=== PATIENT | male | born 1965 | race Hispanic/Latino ===

== ENCOUNTER 2019-02-02 01:45 | Emergency (ER) | payer MEDICARE ==
[2019-02-02] MEDS ORDERED: TYLENOL ONE (03:09)
[2019-02-02] MEDS ORDERED: TYLENOL PO ONE (03:09)
[2019-02-02 04:07] LABS: Amorphous Crystals,Urine 1+; Bilirubin,Urine NEG (Negative); Blood,Urine NEG (Negative); Color,Urine Yellow (Yellow); Hyaline Casts,Urine 7 /LPF; Mucus,Urine 1+ /HPF; Protein,Urine <15 mg/dL mg/dL (Negative); Urobilinogen,Urine < 2.0 mg/dL (<2.0)
--- NOTE | 2019-02-02 07:37 | Emergency Department Report ---
ED Back Pain/Injury HPI - General Chief Complaint: Back Pain/Injury Stated Complaint: BACK PAIN Source: patient Limitations: No Limitations - History of Present Illness Initial Comments: This is a 53-year-old male that presents with acute on chronic low back pain that started 1 hour prior to arrival. Past medical history of hypertension, depression, chronic back pain, Parkinson's, and [place]'s. Patient reports pain is the lower back radiating down bilateral lower extremity. He reports pain 10 out of 10 on pain scale and worse with movement, burning sensation, and intermittent. He denies numbness or tingling, paresthesias, erythema, swelling, nausea or vomiting, weaknesses, urinary frequency, urgency, and dysuria. MD Complaint: back pain Onset/Timin -: days(s) Similar Symptoms Previously: Yes Place: home Radiation: left leg, right leg Severity: severe Severity scale (0 -10): 10 Quality: burning, aching Consistency: intermittent Improves With: none Worsens With: movement, supine, walking Context: unknown Associated Symptoms: denies: numbness, difficulty urinating, incontinence, fever/chills - Related Data Previous Rx's Medication Instructions Recorded Last Taken Type Ibuprofen [Motrin 600 MG tab] 600 mg PO Q8H PRN #15 tablet 02/02/19 Unknown Rx Lisinopril [Prinivil] 10 mg PO DAILY #30 tablet 02/02/19 Unknown Rx traMADol [Ultram 50 MG tab] 50 mg PO Q6HR PRN #12 tablet 02/02/19 Unknown Rx Allergies Allergy/AdvReac Type Severity Reaction Status Date / Time venlafaxine [From Effexor] Allergy Swelling Verified 11/01/18 09:13 ED Review of Systems ROS: Stated complaint: BACK PAIN Other details as noted in HPI Constitutional: denies: chills, fever Respiratory: denies: cough, shortness of breath, wheezing Cardiovascular: denies: chest pain, palpitations Gastrointestinal: denies: abdominal pain, nausea, diarrhea Musculoskeletal: back pain. denies: joint swelling, arthralgia Skin: denies: rash, lesions Neurological: denies: headache, weakness, paresthesias Psychiatric: denies: anxiety, depression ED Past Medical Hx - Past Medical History CHRONIC BACK PAIN, PARKINSONS, ADDISONS ED Back Pain Physical Exam - Exam General: Vital signs noted. No distress. Alert and acting appropriately. Back/Abdomen: Yes Sacroiliac Tenderness (tenderness above the iliac crest bilaterally, no erythema or swelling), Yes Straight Leg Raise Pain (right lower extremity), No Abdominal Tenderness, No Perithoracic Tenderness, No Perilumbar Tenderness, No Flank Tenderness Neuro: Yes Normal Sensation, Yes Normal DTR's, Yes Normal Gait, No Motor Weakness ED Course Vital Signs 02/02/19 02/02/19 03:03 07:23 Temperature 98 F Pulse Rate 82 Respiratory 20 18 Rate Blood Pressure 164/110 O2 Sat by Pulse 98 Oximetry Vital Signs 02/02/19 02/02/19 02/02/19 03:03 07:23 08:45 Temperature 98 F Pulse Rate 82 Respiratory 20 18 Rate Blood Pressure 164/110 163/105 O2 Sat by Pulse 98 Oximetry Ed Back Pain Tests - Tests Tests: Normal UA ED Medical Decision Making - Lab Data Lab Results 02/02/19 Range/Units 03:19 Urine Color Yellow (Yellow) Urine Turbidity Slightly-cloudy (Clear) Urine pH 7.0 (5.0-7.0) Ur Specific [place] 1.017 (1.003-1.030) Urine Protein <15 mg/dl (Negative) mg/dL Urine Glucose (UA) Neg (Negative) mg/dL Urine Ketones Neg (Negative) mg/dL Urine Blood Neg (Negative) Urine Nitrite Neg (Negative) Urine Bilirubin Neg (Negative) Urine Urobilinogen < 2.0 (<2.0) mg/dL Ur Leukocyte Esterase Neg (Negative) Urine WBC (Auto) 2.0 (0.0-6.0) /HPF Urine RBC (Auto) 2.0 (0.0-6.0) /HPF Amorphous Crystals 1+ Hyaline Casts 7 /LPF Urine Mucus 1+ /HPF - Medical Decision Making Patient was examined by me. Patient is in no acute distress. Blood pressure elevated on arrival. Past medical history of [place]'s, hypertension, running low back pain, and depression. Given Motrin , lisinopril, and tramadol while in ER. Obtained a urinalysis, are unremarkable. This is acute on chronic low back pain with sciatica. Patient informed of results. Start ibuprofen and tramadol for pain. We feel lisinopril 10 mg by mouth daily. Blood pressures trended down prior to discharge. Plan discussed with patient to discharge home and treat outpatient. Referral to pain management. He agrees with ER plan. Patient discharged home in stable condition. Follow up with PCP in 2-3 days. Critical care attestation.: If time is entered above; I have spent that time in minutes in the direct care of this critically ill patient, excluding procedure time. ED Disposition Clinical Impression: Low back pain due to bilateral sciatica, Asymptomatic hypertension Chronic bilateral back pain Qualifiers: Back pain location: low back pain Sciatica presence: with sciatica Sciatica laterality: bilateral sciatica Qualified Code(s): M54.42 - Lumbago with sciatica, left side Disposition: TO HOME OR SELFCARE Is pt being admited?: No Does the pt Need Aspirin: No Condition: Stable Instructions: Chronic Pain (ED), Lumbar Radiculopathy (ED), Hypertension (ED), Arthralgia (ED) Additional Instructions: Rest Use ice or heat on affected area for 20 minutes and off for 2 hours. Take pain medication every 6 hours as needed for pain. Follow up with Primary Care Provider in 2-3 days. Prescriptions: Ibuprofen [Motrin 600 MG tab] 600 mg PO Q8H PRN #15 tablet PRN Reason: Pain Lisinopril [Prinivil] 10 mg PO DAILY #30 tablet traMADol [Ultram 50 MG tab] 50 mg PO Q6HR PRN #12 tablet PRN Reason: Pain Referrals: MILE LANGLEY MD [Primary Care Provider] - 3-5 Days [facility] [Provider Group] - 3-5 Days [facility] [Provider Group] - 3-5 Days [facility] [Provider Group] - 3-5 Days [facility] [Provider Group] - 3-5 Days Time of Disposition: 08:06
[2019-02-02] MEDS ORDERED: ULTRAM PO ONE (07:56)
[2019-02-02] MEDS ORDERED: ZESTRIL PO ONE (08:35)
[2019-02-02 09:15] VITALS: BP 157/97
== END 2019-02-02 09:16 | disposition home or self-care (01) ==
LOC: ED 01:45
DX: M54.42 Lumbago with sciatica, left side (principal); I10 Essential (primary) hypertension; G20 Parkinson's disease; G89.29 Other chronic pain; E27.1 Primary adrenocortical insufficiency; Z88.8 Allergy status to other drugs, medicaments and biological substances
CPT/HCPCS: 81001; 99283

== ENCOUNTER 2019-03-27 13:28 | Emergency (ER) | payer MEDICARE ==
--- NOTE | 2019-03-27 13:46 | Emergency Department Report ---
Blank Doc - Documentation Documentation: 53 y o male presents to ED stating he cant pee" stated tried to pee this am and got some blood pelvic pain 8/10 intensity PMH:[email or web address] labs ordered Main ed
[2019-03-27] MEDS ORDERED: NACL 0.9% 500 ML 500 ML IV ONE (16:14)
[2019-03-27] MEDS ORDERED: SUBLIMAZE IV ONE (16:14)
--- NOTE | 2019-03-27 16:15 | Emergency Department Report ---
ED General Adult HPI - General Chief complaint: Urogenital-Male Stated complaint: CANT URINATE/BLOOD IN URINE/VOMITTING Time Seen by Provider: 03/27/19 13:42 Source: patient, RN notes reviewed Mode of arrival: Ambulatory Limitations: Physical Limitation - History of Present Illness Initial comments: Primary care DrBoy: [facility] Past medical history: Hypertension, parkinsonism, [place]'s disease This is a 53-year-old gentleman. The patient is not known to this provider previously. The patient presents to the emergency room today with complaint of nontraumatic left sided left lower quadrant pain, and an inability to urinate. Patient reports difficulty with urination in the past, and reports urinary retention a few months ago. He reports compliance with most of his medications, and indicates his medications have not been recently changed. He had a Danielle catheter placed, which drained approximately 100 mL of clear yellow urine. He denies testicular pain. He still has persistent left lower quadrant pain which is sharp, increases with palpation, decreases with rest and doesn't radiate anywhere. He had nausea, but is now resolved. He makes no complaint of headache, neck pain, sore throat, chest pain, new or different shor tness of breath, or new or different extremity pain. He has chronic tremor secondary to his parkinsonism. -: Sudden Location: abdomen Radiation: non-radiation Severity scale (0 -10): 8 Quality: aching Consistency: constant Improves with: rest - Related Data Home Medications Medication Instructions Recorded Confirmed Last Taken Amantadine [Symmetrel] 100 mg PO DAILY 03/27/19 03/27/19 03/27/19 AtorvaSTATin [Lipitor] 10 mg PO QHS 03/27/19 03/27/19 03/27/19 Carbidopa/Levodopa 10-100 [Sinemet] 1 each PO TID 03/27/19 03/27/19 03/27/19 Fludrocortisone [Florinef Tab] 0.05 mg PO QDAY 03/27/19 03/27/19 03/27/19 Gabapentin [Neurontin] 300 mg PO Q8HR 03/27/19 03/27/19 03/27/19 Lisinopril [Zestril] 10 mg PO QDAY 03/27/19 03/27/19 03/27/19 Sertraline [Zoloft] 100 mg PO BID 03/27/19 03/27/19 03/27/19 busPIRone [Buspar] 10 mg PO TID 03/27/19 03/27/19 03/27/19 predniSONE [Deltasone] 5 mg PO QDAY 03/27/19 03/27/19 03/22/19 Previous Rx's Medication Instructions Recorded Last Taken Type Nitrofurantoin [place]/M-Cryst 100 mg PO Q12HR #14 capsule 03/27/19 Unknown Rx [Macrobid CAP] Tamsulosin [Flomax] 0.4 mg PO QDAY #30 cap 03/27/19 Unknown Rx Allergies Allergy/AdvReac Type Severity Reaction Status Date / Time venlafaxine [From Effexor] Allergy Swelling Verified 03/27/19 13:30 ED Review of Systems ROS: Stated complaint: CANT URINATE/BLOOD IN URINE/VOMITTING Other details as noted in HPI Constitutional: denies: fever Eyes: denies: eye discharge ENT: denies: epistaxis Respiratory: denies: cough Cardiovascular: denies: chest pain Gastrointestinal: abdominal pain Genitourinary: other. denies: testicular pain Musculoskeletal: denies: back pain Skin: denies: lesions Neurological: weakness Psychiatric: anxiety ED Past Medical Hx - Past Medical History Hx Hypertension: Yes Hx Psychiatric Treatment: Yes (DEPRSSION) Additional medical history: CHRONIC BACK PAIN, PARKINSONS, ADDISONS - Surgical History Additional Surgical History: Bowel Surgery - Social History Smoking Status: Never Smoker Substance Use Type: None - Medications Home Medications: Home Medications Medication Instructions Recorded Confirmed Last Taken Type Amantadine [Symmetrel] 100 mg PO DAILY 03/27/19 03/27/19 03/27/19 History AtorvaSTATin [Lipitor] 10 mg PO QHS 03/27/19 03/27/19 03/27/19 History Carbidopa/Levodopa 10-100 [Sinemet] 1 each PO TID 03/27/19 03/27/19 03/27/19 History Fludrocortisone [Florinef Tab] 0.05 mg PO QDAY 03/27/19 03/27/19 03/27/19 History Gabapentin [Neurontin] 300 mg PO Q8HR 03/27/19 03/27/19 03/27/19 History Lisinopril [Zestril] 10 mg PO QDAY 03/27/19 03/27/19 03/27/19 History Nitrofurantoin [place]/M-Cryst 100 mg PO Q12HR #14 capsule 03/27/19 Unknown Rx [Macrobid CAP] Sertraline [Zoloft] 100 mg PO BID 03/27/19 03/27/19 03/27/19 History Tamsulosin [Flomax] 0.4 mg PO QDAY #30 cap 03/27/19 Unknown Rx busPIRone [Buspar] 10 mg PO TID 03/27/19 03/27/19 03/27/19 History predniSONE [Deltasone] 5 mg PO QDAY 03/27/19 03/27/19 03/22/19 History ED Physical Exam - General Limitations: Physical Limitation General appearance: alert, in no apparent distress - Head Head exam: Present: atraumatic, normocephalic - Eye Eye exam: Present: normal appearance, EOMI - ENT ENT exam: Present: normal exam, normal orophraynx, mucous membranes moist - Neck Neck exam: Present: normal inspection, full ROM. Absent: tenderness, meningismus - Respiratory Respiratory exam: Present: normal lung sounds bilaterally. Absent: respiratory distress - Cardiovascular Cardiovascular Exam: Present: regular rate, normal rhythm, normal heart sounds. Absent: bradycardia, tachycardia, irregular rhythm, systolic murmur, diastolic murmur, rubs, gallop - GI/Abdominal GI/Abdominal exam: Present: soft, tenderness, other (there is left lower quadrant tenderness. There is no rebound, guarding or peritoneal signs. There is no right lower quadrant tenderness.). Absent: distended, guarding, rebound, rigid, pulsatile mass - Rectal Rectal exam: Present: deferred - exam: Present: normal inspection, other (there is no testicular tenderness. There is normal testicular lie bilaterally. There is normal cremasteric reflex bilaterally.). Absent: testicular tenderness External exam: Present: normal external exam, other (chaperoned by nurse Francesco Shah) - Extremities Exam Extremities exam: Present: normal inspection, other (2+ pulses noted in the bilateral upper, lower extremities. Compartments soft. No long bony tenderness. The pelvis is stable.). Absent: tenderness, joint swelling, calf tenderness - Back Exam Back exam: Present: normal inspection. Absent: tenderness, CVA tenderness (R), CVA tenderness (L), paraspinal tenderness, vertebral tenderness - Neurological Exam Neurological exam: Present: alert, oriented X3, other (Extraocular movements intact. Tongue midline. No facial droop. Facial sensation intact to light touch in the V1, V2, V3 distribution bilaterally. 5 and 5 strength in 4 extremities.. Sensation is intact to light touch in 4 extremities.) - Psychiatric Psychiatric exam: Present: anxious - Skin Skin exam: Present: warm, dry, intact, normal color. Absent: rash ED Course Vital Signs 03/27/19 03/27/19 03/27/19 13:43 16:03 18:00 Temperature 97.5 F L Pulse Rate 112 H 85 78 Respiratory 20 16 Rate Blood Pressure 110/76 96/61 106/70 [Right] O2 Sat by Pulse 99 96 Oximetry 03/27/19 21:34 Temperature 98.6 F Pulse Rate 66 Respiratory 16 Rate Blood Pressure 110/52 [Right] O2 Sat by Pulse 98 Oximetry - Reevaluation(s) Reevaluation #1: 03/27/19 17:27 Differential diagnosis, including not limited to: Obstructive uropathy, urinary tract infection, BPH, medication side effect, colitis, diverticulitis, constipation, chronic parkinsonism Assessment and plan: 53-year-old gentleman with reported recurrent urinary retention, Danielle catheter in place, draining clear yellow urine, also with left lower quadrant pain. His tachycardia has resolved. He is afebrile with reassuring vital signs. Screening laboratory studies pending. CT scan of the abdomen and pelvis pending. We will reassess after initial data points have resulted.. Reevaluation #2: 03/27/19 20:41 Patient resting comfortably, no active vomiting, and in no acute distress. CT scan interpretation reviewed and appreciated. Patient will be started empirical ly on Macrobid, tamsulosin, and instructed to follow up with outpatient urology. Incidental adrenal lesions noted and appreciated, likely secondary to [place]'s disease, he can have a primary care doctor follow this up. ED Medical Decision Making - Lab Data Result diagrams: 03/27/19 17:12 03/27/19 17:12 Vital Signs 03/27/19 03/27/19 03/27/19 13:43 16:03 18:00 Temperature 97.5 F L Pulse Rate 112 H 85 78 Respiratory 20 16 Rate Blood Pressure 110/76 96/61 106/70 [Right] O2 Sat by Pulse 99 96 Oximetry Vital Signs 03/27/19 03/27/19 03/27/19 13:43 16:03 18:00 Temperature 97.5 F L Pulse Rate 112 H 85 78 Respiratory 20 16 Rate Blood Pressure 110/76 96/61 106/70 [Right] O2 Sat by Pulse 99 96 Oximetry Lab Results 03/27/19 03/27/19 03/27/19 Range/Units 15:43 17:12 17:12 WBC 6.6 (4.5-11.0) K/mm3 RBC 5.12 H (3.65-5.03) M/mm3 Hgb 15.3 H (11.8-15.2) gm/dl Hct 45.2 (35.5-45.6) % MCV 88 (84-94) fl MCH 30 (28-32) pg MCHC 34 (32-34) % RDW 14.4 (13.2-15.2) % Plt Count 215 (140-440) K/mm3 PT 13.9 (12.2-14.9) Sec. INR 1.01 (0.87-1.13) Sodium (137-145) mmol/L Potassium (3.6-5.0) mmol/L Chloride (98-107) mmol/L Carbon Dioxide (22-30) mmol/L Anion Gap mmol/L BUN (9-20) mg/dL Creatinine (0.8-1.5) mg/dL Estimated GFR ml/min BUN/Creatinine Ratio % Glucose (75-100) mg/dL Calcium (8.4-10.2) mg/dL Magnesium (1.7-2.3) mg/dL Total Creatine Kinase (55-170) units/L Urine Color Ирина (Yellow) Urine Turbidity Slightly-cloudy (Clear) Urine pH 5.0 (5.0-7.0) Ur Specific [place] 1.027 (1.003-1.030) Urine Protein <15 mg/dl (Negative) mg/dL Urine Glucose (UA) Neg (Negative) mg/dL Urine Ketones Tr (Negative) mg/dL Urine Blood Neg (Negative) Urine Nitrite Neg (Negative) Urine Bilirubin Neg (Negative) Urine Urobilinogen < 2.0 (<2.0) mg/dL Ur Leukocyte Esterase Sm (Negative) Urine WBC (Auto) 11.0 H (0.0-6.0) /HPF Urine RBC (Auto) 8.0 (0.0-6.0) /HPF Urine Mucus Few /HPF // Range/Units 17:12 WBC (4.5-11.0) K/mm3 RBC (3.65-5.03) M/mm3 Hgb (11.8-15.2) gm/dl Hct (35.5-45.6) % MCV (84-94) fl MCH (28-32) pg MCHC (32-34) % RDW (13.2-15.2) % Plt Count (140-440) K/mm3 PT (12.2-14.9) Sec. INR (0.87-1.13) Sodium 136 L (137-145) mmol/L Potassium 4.9 (3.6-5.0) mmol/L Chloride 102.1 (98-107) mmol/L Carbon Dioxide 23 (22-30) mmol/L Anion Gap 16 mmol/L BUN 29 H (9-20) mg/dL Creatinine 1.4 (0.8-1.5) mg/dL Estimated GFR 53 ml/min BUN/Creatinine Ratio 21 % Glucose 108 H (75-100) mg/dL Calcium 8.5 (8.4-10.2) mg/dL Magnesium 1.80 (1.7-2.3) mg/dL Total Creatine Kinase 53 L (55-170) units/L Urine Color (Yellow) Urine Turbidity (Clear) Urine pH (5.0-7.0) Ur Specific [place] (1.003-1.030) Urine Protein (Negative) mg/dL Urine Glucose (UA) (Negative) mg/dL Urine Ketones (Negative) mg/dL Urine Blood (Negative) Urine Nitrite (Negative) Urine Bilirubin (Negative) Urine Urobilinogen (<2.0) mg/dL Ur Leukocyte Esterase (Negative) Urine WBC (Auto) (0.0-6.0) /HPF Urine RBC (Auto) (0.0-6.0) /HPF Urine Mucus /HPF - Radiology Data Radiology results: report reviewed, image reviewed eport Referring Physician: CHANNING MILLER Patient Name: DEVAN DOWLING Date of : 1965 Sex: Male Report Date: 2019-03-27 Report Status: Finalized Findings [facility] [address] [place] [address] Cat Scan Report Signed Patient: DEVAN DOWLING MR#: [id number] : 1965 Acct:[id number] Age/Sex: 53 / M ADM Date: 03/27/19 Loc: ED Attending Dr: Ordering Physician: RANJAN SANCHEZ Date of Service: 03/27/19 Procedure(s): CT abdomen pelvis w con Accession Number(s): [id number] cc: RANJAN SANCHEZ PROCEDURE: CT ABDOMEN PELVIS W CON TECHNIQUE: Computerized axial tomography of the abdomen and pelvis was performed after the IV injection of iodinated nonionic contrast. CT DOSE LENGTH PRODUCT: 1548.42 mGycm HISTORY: pain FINDINGS: Contrast-enhanced CT of the abdomen and pelvis was performed following the intravenous administration of iodinated contrast. Data was reformatted in the sagittal and coronal planes. The heart is mildly large. There is lingular and left lower lobe dependent consolidation which is likely atelectasis. ABDOMEN: No suspect focal hepatic lesion is seen. The spleen is normal in size. No focal pancreatic lesion is seen. The gallbladder is distended but is otherwise unremarkable. There are 2 left adrenal lesions, both containing lipid-density elements and likely adenomas or myelolipomas. Lesion in the lateral limb of the left adrenal gland measures 2.4 x 1.8 cm. Lesion in the central aspect of the left adrenal gland measures 3.1 x 2.4 cm. There are 3 lesions in the right adrenal gland with similar imaging characteristics, each containing some fat and therefore likely adenomas or myelolipomas. Lesion in the medial limb of the right adrenal gland measures 1.8 x 1.4 cm. Lesion in the central aspect of the right adrenal gland measures 2.3 x 1.6 cm. Largest lesion is in the lateral limb of the right adrenal gland, mostly fat and likely myelolipoma, 6.9 x 4.4 cm. There are bilateral nonobstructing renal calculi. No ureteral calculus or hydronephrosis is identified. There is no small or large bowel obstruction. The abdominal aorta is normal in size. There is a fat-containing umbilical hernia. Pelvis: There is a 0.6 cm x 0.8 stone in the right sacral ureter, approximately 3 cm proximal the right ureterovesical junction. There is minimal dilation of the right ureter. No calyceal dilation is seen in the right kidney. There is a normal appendix. There is no evidence of diverticulitis. The prostate is enlarged. There is a Danielle catheter in the urinary bladder. IMPRESSION: Multiple bilateral adrenal lesions, likely adenomas or mild low lipoma is Bilateral nonobstructing renal calculi Pelvis: Stone in right sacral ureter This document is electronically signed by Yovani Eastman MD., Mar 27 2019 08:16:14 PM ET Transcribed By: VALERIE Dictated By: YOVANI EASTMAN MD Electronically Authenticated By: YOVANI EASTMAN MD Signed Date/Time: 03/27/192017 Critical care attestation.: If time is entered above; I have spent that time in minutes in the direct care of this critically ill patient, excluding procedure time. ED Disposition Clinical Impression: Urinary retention, Lower abdominal pain Disposition: DC-01 TO HOME OR SELFCARE Is pt being admited?: No Does the pt Need Aspirin: No Condition: Stable Additional Instructions: Cultures were sent today, and results will be available in the next 3-5 days. Please have a primary care doctor contact the medical records department to obtain culture results. Please follow up with a urology specialist within the next 5-7 days for repeat evaluation, and possible trial of void/removal of Danielle catheter. CT scan of the abdomen and pelvis demonstrated incidental nonemergent findings of the adrenal glands and other organs. Please have a primary care doctor contact the medical records department to obtain CT scan results, and follow-up nonemergent findings. Please return to the emergency room right away with new pain, worsened pain, migration of pain, projectile vomiting, change in mental status, confusion, inability to tolerate liquid feeds, new, worsening or different symptoms. Local urology specialist include [facility] The patient may take [id number] acetaminophen, alternating with ibuprofen as needed for pain. Prescriptions: Tamsulosin [Flomax] 0.4 mg PO QDAY #30 cap Nitrofurantoin [place]/M-Cryst [Macrobid CAP] 100 mg PO Q12HR #14 capsule Referrals: SNEHA CHO MD [Staff Physician] - 3-5 Days
[2019-03-27 16:18] LABS: Bilirubin,Urine NEG (Negative); Blood,Urine NEG (Negative); Color,Urine Amber (Yellow); Mucus,Urine FEW /HPF; Protein,Urine <15 mg/dL mg/dL (Negative); Urobilinogen,Urine < 2.0 mg/dL (<2.0)
[2019-03-27 17:23] LABS: Hematocrit 45.2 % (35.5-45.6); Hemoglobin 15.3 gm/dl (11.8-15.2); Mean Corpuscular HGB Conc 34 % (32-34); Mean Corpuscular Volume 88 fl (84-94); Platelet Count 215 K/mm3 (140-440); Red Blood Count 5.12 M/mm3 (3.65-5.03); Red Cell Distribution Width 14.4 % (13.2-15.2)
[2019-03-27 17:39] LABS: Calcium 8.5 mg/dL (8.4-10.2)
[2019-03-27 17:46] LABS: INR 1.01 (0.87-1.13)
--- NOTE | 2019-03-27 20:18 | Cat Scan Report ---
PROCEDURE: CT ABDOMEN PELVIS W CON TECHNIQUE: Computerized axial tomography of the abdomen and pelvis was performed after the IV inject ion of iodinated nonionic contrast. CT DOSE LENGTH PRODUCT: 1548.42 mGycm HISTORY: pain FINDINGS: Contrast-enhanced CT of the abdomen and pelvis was performed following the intravenous admi nistration of iodinated contrast. Data was reformatted in the sagittal and coronal planes. The heart is mildly large. There is lingular and left lower lobe dependent consolidation which is lik sigrid atelectasis. ABDOMEN: No suspect focal hepatic lesion is seen. The spleen is normal in size. No focal pancreatic lesion is seen. The gallbladder is distended but is otherwise unremarkable. There are 2 left adrenal lesions, both containing lipid-density elements and likely adenomas or myelo lipomas. Lesion in the lateral limb of the left adrenal gland measures 2.4 x 1.8 cm. Lesion in the ce ntral aspect of the left adrenal gland measures 3.1 x 2.4 cm. There are 3 lesions in the right adrenal gland with similar imaging characteristics, each containing some fat and therefore likely adenomas or myelolipomas. Lesion in the medial limb of the right adrena l gland measures 1.8 x 1.4 cm. Lesion in the central aspect of the right adrenal gland measures 2.3 x 1.6 cm. Largest lesion is in the lateral limb of the right adrenal gland, mostly fat and likely myel olipoma, 6.9 x 4.4 cm. There are bilateral nonobstructing renal calculi. No ureteral calculus or hydronephrosis is identifie d. There is no small or large bowel obstruction. The abdominal aorta is normal in size. There is a fat-containing umbilical hernia. Pelvis: There is a 0.6 cm x 0.8 stone in the right sacral ureter, approximately 3 cm proximal the right urete rovesical junction. There is minimal dilation of the right ureter. No calyceal dilation is seen in th e right kidney. There is a normal appendix. There is no evidence of diverticulitis. The prostate is enlarged. There is a Danielle catheter in the urinary bladder. IMPRESSION: Multiple bilateral adrenal lesions, likely adenomas or mild low lipoma is Bilateral nonobstructing renal calculi Pelvis: Stone in right sacral ureter This document is electronically signed by Yovani Eastman MD., Mar 27 2019 08:16:14 PM ET
[2019-03-27] MEDS ORDERED: IBUPROFEN PO ONE (21:10)
[2019-03-27 21:36] VITALS: BP 110/52
== END 2019-03-27 21:34 | disposition home or self-care (01) ==
LOC: ED 13:28
DX: R33.9 Retention of urine, unspecified (principal); I10 Essential (primary) hypertension; G20 Parkinson's disease; R10.32 Left lower quadrant pain; M54.9 Dorsalgia, unspecified; G89.29 Other chronic pain; Z88.1 Allergy status to other antibiotic agents
CPT/HCPCS: 36415; 51702; 74177; 80048; 81001; 82550; 83735; 85027; 85610; 87086; 96374; 99284; J3010; J7040; Q9967